=== PATIENT | female | born 1990 | race Two or more races ===

== ENCOUNTER 2016-04-26 21:02 | Emergency (ER) | payer MEDICAID ==
[~2016-04-26] VITALS: Ht 165.1 cm; Wt 176.0 kg
[~2016-04-26 21:02] MED LIST: OLA5T GT
[2016-04-26] MEDS ORDERED: LORazepam 2MG/ML-1ML VIAL IV ONE (22:00)
[2016-04-26] MEDS ORDERED: diphenhdrAMINE HCL 50 MG/1 ML VL IV ONE (22:00)
[2016-04-26] MEDS ORDERED: HALOPERIDOL LACTATE 5 MG/ML INJ VIAL IM ONE (22:00)
[2016-04-26 22:04] LABS: Basophils # (auto) 0.1 uL; Basophils % (auto) 1.6 % (0.0-2.0); Eosinophils # (auto) 0.6 uL; Eosinophils % (auto) 7.4 % (0.0-7.0); Hematocrit 38.7 % (36.0-46.0); Hemoglobin 13.1 g/dL (12.2-16.2); Lymphocytes % (auto) 23.6 % (10.0-50.0); Mean Corpuscular Hemoglobin 28.4 pg (28.0-32.0); Mean Corpuscular Hgb Conc. 33.8 g/dL (32.0-36.0); Mean Platelet Volume 7.9 fL (7.4-10.4); Monocytes # (auto) 0.5 uL; Monocytes % (auto) 5.8 % (0.0-12.0); Neutrophils # (auto) 5.3 uL; Neutrophils % (auto) 61.6 % (37.0-80.0); Platelet Count (auto) 414 10^3/uL (140-450); Red Cell Distribution Width 15.5 % (11.6-16.0); White Blood Cell 8.6 10^3/uL (4.4-10.8)
[2016-04-26 22:36] LABS: Albumin 3.7 g/dL (3.4-5.0); Anion Gap 9 (5-15); Aspartate Aminotransferase 22 U/L (15-37); BUN/Creatinine Ratio 11.8; Blood Urea Nitrogen 9 mg/dL (7-18); Calcium 8.6 mg/dL (8.5-10.1); Carbon Dioxide 24 mmol/L (21-32); Chloride 106 mmol/L (98-107); GFR African American 119 mL/min; GFR Non-African American 99 mL/min; Glucose 114 mg/dL (74-106); Potassium 3.9 mmol/L (3.5-5.1); Sodium 139 mmol/L (136-145)
[2016-04-26 22:39] LABS: Alkaline Phosphatase 144 U/L (45-117); Bilirubin, Total 0.1 mg/dL (0.2-1.0); Total Protein 7.8 g/dL (6.4-8.2)
[2016-04-26 22:41] LABS: Salicylate 3.9 mg/dL (2.8-20.0)
[2016-04-26 22:46] LABS: Acetaminophen < 2.0 ug/mL (10-30)
[2016-04-27 02:00] VITALS: BP 102/55
== END 2016-04-27 02:50 | disposition home or self-care (01) ==
LOC: EDBD 21:02 → ER 21:11
DX: F41.9 Anxiety disorder, unspecified (principal); F17.210 Nicotine dependence, cigarettes, uncomplicated; F19.10 Other psychoactive substance abuse, uncomplicated; T14.91 Suicide attempt; J45.909 Unspecified asthma, uncomplicated; F32.9 Major depressive disorder, single episode, unspecified; F20.9 Schizophrenia, unspecified
CPT/HCPCS: 36415; 80053; 80320; 80329; 85025; 96372; 96374; 96375; 99284; J1200; J1630; J2060

== ENCOUNTER 2016-04-27 11:26 | Emergency (ER) | payer MEDICAID ==
[~2016-04-27] VITALS: Ht 170.2 cm; Wt 113.4 kg
[2016-04-27 12:00] VITALS: BP 130/78
== END 2016-04-27 15:04 | disposition home or self-care (01) ==
LOC: ER 11:26
DX: F41.9 Anxiety disorder, unspecified (principal); J45.909 Unspecified asthma, uncomplicated; F32.9 Major depressive disorder, single episode, unspecified; F17.210 Nicotine dependence, cigarettes, uncomplicated; F20.9 Schizophrenia, unspecified
CPT/HCPCS: 93005

== ENCOUNTER 2016-05-09 11:05 | Emergency (ER) | payer MEDICAID ==
[~2016-05-09] VITALS: Ht 165.1 cm; Wt 54.4 kg
[2016-05-09 11:41] LABS: Basophils # (auto) 0 uL; Basophils % (auto) 0.4 % (0.0-2.0); Eosinophils # (auto) 0.4 uL; Eosinophils % (auto) 4.6 % (0.0-7.0); Hematocrit 38.6 % (36.0-46.0); Hemoglobin 12.8 g/dL (12.2-16.2); Lymphocytes # (auto) 1.9 uL; Lymphocytes % (auto) 22.8 % (10.0-50.0); Mean Corpuscular Hgb Conc. 33.1 g/dL (32.0-36.0); Mean Corpuscular Volume 84.4 fL (80.0-100.0); Mean Platelet Volume 7.6 fL (7.4-10.4); Monocytes # (auto) 0.6 uL; Monocytes % (auto) 6.8 % (0.0-12.0); Neutrophils # (auto) 5.4 uL; Neutrophils % (auto) 65.4 % (37.0-80.0); Platelet Count (auto) 359 10^3/uL (140-450); Red Cell Distribution Width 15.7 % (11.6-16.0); White Blood Cell 8.2 10^3/uL (4.4-10.8)
[2016-05-09 12:15] LABS: Albumin 3.6 g/dL (3.4-5.0); Calcium 8.4 mg/dL (8.5-10.1); Potassium 4.1 mmol/L (3.5-5.1)
[2016-05-09 12:17] LABS: Acetaminophen < 2.0 ug/mL (10-30); Salicylate 3.9 mg/dL (2.8-20.0)
[2016-05-09 12:20] LABS: BUN/Creatinine Ratio 15.8; Bilirubin, Total 0.1 mg/dL (0.2-1.0); Total Protein 7.5 g/dL (6.4-8.2)
[2016-05-09 13:26] LABS: Urine Bilirubin Negative (Negative); Urine Blood Negative /uL (Negative); Urine Color Yellow (Yellow); Urine Glucose Normal (Normal); Urine Ketone Negative (Negative); Urine Nitrite Negative (Negative); Urine RBC <1 /hpf (0 - 4); Urine Squamous Epithelial Cell FEW /hpf (<5); Urine Urobilinogen Normal (Negative)
[2016-05-09 17:54] VITALS: BP 162/90
[2016-05-09] MEDS ORDERED: LORazepam 2MG/ML-1ML VIAL IM ONE (18:15)
[2016-05-09 18:53] LABS: Amylase 48 U/L (25-115)
== END 2016-05-09 19:02 | disposition home or self-care (01) ==
LOC: EDBD 11:05 → ER 11:05
DX: F41.9 Anxiety disorder, unspecified (principal); F32.9 Major depressive disorder, single episode, unspecified; J45.909 Unspecified asthma, uncomplicated; F20.9 Schizophrenia, unspecified; F17.210 Nicotine dependence, cigarettes, uncomplicated; F19.10 Other psychoactive substance abuse, uncomplicated; R10.9 Unspecified abdominal pain
CPT/HCPCS: 36415; 80053; 80329; 81001; 81025; 82150; 83690; 84702; 85025; 96372; 99284; G0434; J2060

== ENCOUNTER 2020-07-19 18:31 | Inpatient (IN) | payer MEDICAID ==
[~2020-07-19] VITALS: Ht 165.1 cm; Wt 126.8 kg
[2020-07-19] MEDS ORDERED: PANTOPRAZOLE 40 MG/10 ML VIAL INJ IV STA (18:55)
[2020-07-19] MEDS ORDERED: SODIUM CHLORIDE 0.9% 1,000 ML IVB ONE (19:00)
[2020-07-19] MEDS ORDERED: MORPHINE SULFATE 4 MG/ML SYR/VIAL IV ONE (19:00)
[2020-07-19] MEDS ORDERED: ONDANSETRON HCL 4 MG/2 ML VIAL IV ONE (19:00)
[2020-07-19 19:37] LABS: Basophils # (auto) 0.1 10 ^3/uL (0-0.2); Basophils % (auto) 0.4 % (0.0-2.0); Eosinophils # (auto) 0.1 10 ^3/uL (0-0.8); Eosinophils % (auto) 0.8 % (0.0-7.0); Hemoglobin 13.3 g/dL (12.2-16.2); Lymphocytes # (auto) 1.5 10 ^3/uL (0.4-5.4); Lymphocytes % (auto) 11.3 % (10.0-50.0); Mean Corpuscular Volume 85.4 fL (80.0-100.0); Monocytes # (auto) 0.6 10 ^3/uL (0-1.3); Monocytes % (auto) 4.2 % (0.0-12.0); Neutrophils # (auto) 11.2 10 ^3/uL (1.6-8.6); Neutrophils % (auto) 83.3 % (37.0-80.0); Nucleated Red Blood Cells % 0.1 %; Platelet Count (auto) 370 10^3/uL (140-450); Red Blood Cells 4.57 10^6/uL (4.0-5.20); Red Cell Distribution Width 14.7 % (11.8-14.3); White Blood Cell 13.4 10^3/uL (4.4-10.8)
[2020-07-19 19:48] LABS: Albumin 3.8 g/dL (3.4-5.0); BUN/Creatinine Ratio 15.1; Calcium 8.9 mg/dL (8.5-10.1); Potassium 4.1 mmol/L (3.5-5.1)
[2020-07-19 19:51] LABS: Bilirubin, Total 0.7 mg/dL (0.2-1.0); Total Protein 7.9 g/dL (6.4-8.2)
[2020-07-19] MEDS ORDERED: SODIUM CHLORIDE 0.9% 1,000 ML IV SCH (22:45)
[2020-07-19] MEDS ORDERED: MORPHINE SULF INJ 2 MG/ML SYRINGE 1ML IV PRN (22:45)
[2020-07-19] MEDS ORDERED: TEMAZEPAM 15 MG CAP PO PRN (22:45)
[2020-07-19] MEDS ORDERED: NITROGLYCERIN 0.4 MG SL TAB SL PRN (22:45)
[2020-07-19] MEDS ORDERED: ACETAMINOPHEN 325 MG TAB PO PRN (22:45)
[2020-07-20] MEDS: MORPHINE SULFATE 4 MG/ML SYR/VIAL IV PRN ×4 (01:25→23:27)
[2020-07-20 05:00] VITALS: BP 98/59
[2020-07-20 05:35] LABS: Basophils # (auto) 0 10 ^3/uL (0-0.2); Basophils % (auto) 0.4 % (0.0-2.0); Eosinophils # (auto) 0.1 10 ^3/uL (0-0.8); Eosinophils % (auto) 1.4 % (0.0-7.0); Hematocrit 36.6 % (36.0-46.0); Hemoglobin 12.3 g/dL (12.2-16.2); Lymphocytes # (auto) 2.6 10 ^3/uL (0.4-5.4); Lymphocytes % (auto) 29.2 % (10.0-50.0); Mean Corpuscular Hemoglobin 28.9 pg (28.0-32.0); Mean Corpuscular Hgb Conc. 33.5 g/dL (32.0-36.0); Mean Corpuscular Volume 86.3 fL (80.0-100.0); Monocytes # (auto) 0.5 10 ^3/uL (0-1.3); Monocytes % (auto) 5.7 % (0.0-12.0); Neutrophils # (auto) 5.6 10 ^3/uL (1.6-8.6); Neutrophils % (auto) 63.3 % (37.0-80.0); Platelet Count (auto) 340 10^3/uL (140-450); Red Blood Cells 4.24 10^6/uL (4.0-5.20); Red Cell Distribution Width 14.9 % (11.8-14.3); White Blood Cell 8.9 10^3/uL (4.4-10.8)
[2020-07-20 05:49] LABS: Urine Bacteria MANY /hpf (None Seen); Urine Blood Negative /uL (Negative); Urine Hyaline Cast FEW /lpf (0 - 2); Urine Mucus MODERATE (None Seen); Urine WBC 24 /hpf (0 - 5)
[2020-07-20 06:08] LABS: Albumin 3.3 g/dL (3.4-5.0); BUN/Creatinine Ratio 17.2; Bilirubin, Total 0.4 mg/dL (0.2-1.0); Calcium 8.6 mg/dL (8.5-10.1); Total Protein 6.9 g/dL (6.4-8.2)
[2020-07-20] MEDS ORDERED: LORazepam 2MG/ML-1ML VIAL IV PRN (08:15)
[2020-07-20 08:30] VITALS: BP 89/58
[2020-07-20] MEDS: cefTRIAXone 1GM/50ML D5W 50 ML IV SCH (09:40)
[2020-07-20] MEDS: PANTOPRAZOLE 40 MG/10 ML VIAL INJ IV SCH (09:40)
[2020-07-20] MEDS ORDERED: ENOXAPARIN SOD 40 MG/0.4 ML SYRINGE SC SCH (10:00)
[2020-07-20 10:23] VITALS: BP 93/40
[2020-07-20 12:31] VITALS: BP 92/57
[2020-07-20] MEDS: ONDANSETRON HCL 4 MG/2 ML VIAL IV PRN ×2 (13:05→18:31)
[2020-07-20] MEDS: SODIUM CHLORIDE 0.9% 1,000 ML IV SCH ×2 (13:44→22:00)
[2020-07-20] MEDS: metroNIDAZOLE 500MG/100ML 100 ML IV SCH ×2 (13:44→22:00)
[2020-07-20 14:08] LABS: INR 1.02 (0.9-1.15); Partial Thromboplastin Time 30.5 sec (23.0-31.2)
[2020-07-20 16:30] VITALS: BP 95/62
[2020-07-20] MEDS: HYDROcodone-ACET 5/325MG TAB PO PRN (21:58)
[2020-07-20 22:16] VITALS: BP 97/57
[2020-07-21 04:59] VITALS: BP 111/58
[2020-07-21] MEDS: MORPHINE SULFATE 4 MG/ML SYR/VIAL IV PRN ×4 (05:03→21:38)
[2020-07-21 05:54] LABS: Basophils # (auto) 0.1 10 ^3/uL (0-0.2); Eosinophils # (auto) 0.2 10 ^3/uL (0-0.8); Eosinophils % (auto) 2.2 % (0.0-7.0); Hemoglobin 11.5 g/dL (12.2-16.2); Lymphocytes # (auto) 2.9 10 ^3/uL (0.4-5.4); Lymphocytes % (auto) 39.1 % (10.0-50.0); Mean Corpuscular Hemoglobin 29.8 pg (28.0-32.0); Mean Corpuscular Hgb Conc. 34.9 g/dL (32.0-36.0); Mean Corpuscular Volume 85.6 fL (80.0-100.0); Monocytes # (auto) 0.4 10 ^3/uL (0-1.3); Monocytes % (auto) 5.6 % (0.0-12.0); Neutrophils # (auto) 3.8 10 ^3/uL (1.6-8.6); Neutrophils % (auto) 52.1 % (37.0-80.0); Platelet Count (auto) 316 10^3/uL (140-450); Red Blood Cells 3.85 10^6/uL (4.0-5.20); Red Cell Distribution Width 14.7 % (11.8-14.3); White Blood Cell 7.4 10^3/uL (4.4-10.8)
[2020-07-21 06:13] LABS: Potassium 4.2 mmol/L (3.5-5.1)
[2020-07-21 06:20] LABS: Albumin 3.2 g/dL (3.4-5.0); BUN/Creatinine Ratio 9.2; Bilirubin, Total 0.4 mg/dL (0.2-1.0); Calcium 8.3 mg/dL (8.5-10.1); Total Protein 6.8 g/dL (6.4-8.2)
[2020-07-21] MEDS: metroNIDAZOLE 500MG/100ML 100 ML IV SCH ×3 (06:24→21:38)
[2020-07-21 08:39] VITALS: BP 106/71
[2020-07-21] MEDS: cefTRIAXone 1GM/50ML D5W 50 ML IV SCH ×3 (09:00→09:40)
[2020-07-21] MEDS ORDERED: fentaNYL CITRATE 100 MCG/2 ML VL ONE (09:31)
[2020-07-21] MEDS ORDERED: MIDAZOLAM HCL 1MG/1ML-2 ML VIAL ONE (09:31)
[2020-07-21] MEDS ORDERED: PROPOFOL 10 MG/ML 20 ML IV ONE (09:32)
[2020-07-21] MEDS ORDERED: DexAMETHasone SOD PHOS 10MG/1ML VIAL INJ ONE (09:32)
[2020-07-21] MEDS ORDERED: ONDANSETRON HCL 4 MG/2 ML VIAL ONE (09:32)
[2020-07-21] MEDS ORDERED: LIDOCAINE 2% (LOCAL ANESTH.) PF 5ml SDV ONE (09:32)
[2020-07-21] MEDS ORDERED: ROCURONIUM 10MG/ML 10ML VIAL IV ONE (09:33)
[2020-07-21] MEDS ORDERED: LIDOCAINE W/ EPINEPHRINE 1% 20ML VIAL ONE (10:04)
[2020-07-21] MEDS ORDERED: BUPIVACAINE 0.25% INJ 50ML VIAL ONE (10:04)
[2020-07-21] MEDS ORDERED: KETOROLAC TROMETH 60MG/2ML VIAL ONE (10:27)
[2020-07-21] MEDS ORDERED: NEOSTIGMINE 1 MG/ML INJ (10mg/10ML VIAL) ONE (10:28)
[2020-07-21] MEDS ORDERED: GLYCOPYRROLATE 0.2 MG/ML 1ML VIAL ONE (10:28)
[2020-07-21] MEDS ORDERED: HYDROmorphone HCL 2 MG/ML VL ONE (11:00)
[2020-07-21] MEDS ORDERED: HYDROmorphone HCL 2 MG/ML VL IV PRN (11:00)
[2020-07-21] MEDS: HYDROmorphone HCL 2 MG/ML VL IV PRN ×2 (11:00→11:20)
[2020-07-21] MEDS ORDERED: METOCLOPRAMIDE HCL 5MG/ml INJ 2ml VIAL IV PRN (11:00)
[2020-07-21] MEDS ORDERED: LABETALOL HCL 5 MG/ML 4ML SYRINGE IV PRN (11:00)
[2020-07-21 12:00] VITALS: BP 112/63
[2020-07-21] MEDS: PANTOPRAZOLE 40 MG/10 ML VIAL INJ IV SCH (13:20)
[2020-07-21] MEDS: SODIUM CHLORIDE 0.9% 1,000 ML IV SCH (13:21)
[2020-07-21] MEDS: DOCUSATE SOD 100 MG CAP PO PRN (15:10)
[2020-07-21] MEDS: HYDROcodone-ACET 5/325MG TAB PO PRN ×2 (15:11→19:29)
[2020-07-21] MEDS: ONDANSETRON HCL 4 MG/2 ML VIAL IV PRN (15:12)
[2020-07-21 16:17] VITALS: BP 101/56
[2020-07-21 17:53] VITALS: BP 102/70
[2020-07-21 22:10] VITALS: BP 105/58
[2020-07-22] MEDS: HYDROcodone-ACET 5/325MG TAB PO PRN ×3 (00:50→17:16)
[2020-07-22] MEDS: SODIUM CHLORIDE 0.9% 1,000 ML IV SCH ×2 (03:14→14:30)
[2020-07-22] MEDS: MORPHINE SULFATE 4 MG/ML SYR/VIAL IV PRN ×5 (04:35→23:42)
[2020-07-22 05:02] VITALS: BP 118/76
[2020-07-22 05:03] LABS: Basophils # (auto) 0 10 ^3/uL (0-0.2); Basophils % (auto) 0.2 % (0.0-2.0); Eosinophils # (auto) 0 10 ^3/uL (0-0.8); Hematocrit 34.9 % (36.0-46.0); Hemoglobin 11.6 g/dL (12.2-16.2); Lymphocytes # (auto) 1.2 10 ^3/uL (0.4-5.4); Mean Corpuscular Hemoglobin 28.4 pg (28.0-32.0); Mean Corpuscular Hgb Conc. 33.1 g/dL (32.0-36.0); Mean Corpuscular Volume 85.5 fL (80.0-100.0); Monocytes # (auto) 0.6 10 ^3/uL (0-1.3); Monocytes % (auto) 5.8 % (0.0-12.0); Neutrophils # (auto) 8.2 10 ^3/uL (1.6-8.6); Platelet Count (auto) 335 10^3/uL (140-450); Red Blood Cells 4.09 10^6/uL (4.0-5.20); Red Cell Distribution Width 14.6 % (11.8-14.3)
[2020-07-22 05:13] LABS: Albumin 3.1 g/dL (3.4-5.0); BUN/Creatinine Ratio 10.2; Calcium 8.3 mg/dL (8.5-10.1); Magnesium 1.9 mg/dL (1.6-2.6); Potassium 3.8 mmol/L (3.5-5.1)
[2020-07-22 05:16] LABS: Bilirubin, Total 0.9 mg/dL (0.2-1.0); Total Protein 6.7 g/dL (6.4-8.2)
[2020-07-22] MEDS: metroNIDAZOLE 500MG/100ML 100 ML IV SCH ×3 (06:14→21:31)
[2020-07-22] MEDS: cefTRIAXone 1GM/50ML D5W 50 ML IV SCH (09:05)
[2020-07-22] MEDS: PANTOPRAZOLE 40 MG/10 ML VIAL INJ IV SCH (09:05)
[2020-07-22] MEDS: DOCUSATE SOD 100 MG CAP PO PRN (09:10)
[2020-07-22 09:15] VITALS: BP 110/69
[2020-07-22] MEDS ORDERED: POTASSIUM CHL 20 Meq TABLET PO ONE (12:15)
[2020-07-22] MEDS ORDERED: MAGNESIUM SULFATE 1GM/100ML 100 ML IV ONE (12:15)
[2020-07-22 12:48] VITALS: BP 112/67
[2020-07-22 16:54] VITALS: BP 119/61
[2020-07-22 22:00] VITALS: BP 88/55
[2020-07-22] MEDS: ONDANSETRON HCL 4 MG/2 ML VIAL IV PRN (23:42)
[2020-07-23 00:30] VITALS: BP 98/55
[2020-07-23] MEDS: SODIUM CHLORIDE 0.9% 1,000 ML IV SCH (04:47)
[2020-07-23 05:00] VITALS: BP 106/70
[2020-07-23] MEDS: metroNIDAZOLE 500MG/100ML 100 ML IV SCH ×2 (05:11→13:35)
[2020-07-23] MEDS: HYDROcodone-ACET 5/325MG TAB PO PRN (05:11)
[2020-07-23 08:00] LABS: Hematocrit 32.9 % (36.0-46.0); Hemoglobin 10.9 g/dL (12.2-16.2)
[2020-07-23 08:18] LABS: Magnesium 1.9 mg/dL (1.6-2.6); Potassium 3.9 mmol/L (3.5-5.1)
[2020-07-23 08:21] LABS: Bilirubin, Direct 0.1 mg/dL (0-0.2); Bilirubin, Total 0.3 mg/dL (0.2-1.0); Total Protein 6.5 g/dL (6.4-8.2)
[2020-07-23 09:00] VITALS: BP 128/73
[2020-07-23] MEDS: PANTOPRAZOLE 40 MG/10 ML VIAL INJ IV SCH (09:20)
[2020-07-23] MEDS: cefTRIAXone 1GM/50ML D5W 50 ML IV SCH (09:21)
[2020-07-23 13:00] VITALS: BP 107/63
== END 2020-07-23 17:35 | disposition home or self-care (01) | DRG 263 ==
LOC: EDBD 18:31 → ER 18:31 → TELE 22:41 → TELE-CENTR 07-20 00:31 → CENTRAL 07-20 12:13
PROVIDERS: ADMIT Nurse Practitioner Family; ATTEND Internal Medicine
PROC: 0FT44ZZ Resection of Gallbladder, Percutaneous Endoscopic Approach (ICD-10-PCS; principal; 2020-07-21 09:42)
DX: K80.12 Calculus of gallbladder with acute and chronic cholecystitis without obstruction (principal); R65.10 Systemic inflammatory response syndrome (SIRS) of non-infectious origin without acute organ dysfunction; E66.01 Morbid (severe) obesity due to excess calories; Z68.42 Body mass index [BMI] 45.0-49.9, adult; F20.9 Schizophrenia, unspecified; R79.89 Other specified abnormal findings of blood chemistry; F17.210 Nicotine dependence, cigarettes, uncomplicated; F32.9 Major depressive disorder, single episode, unspecified; F41.9 Anxiety disorder, unspecified; Z20.822 Contact with and (suspected) exposure to COVID-19; Z83.3 Family history of diabetes mellitus; Z80.1 Family history of malignant neoplasm of trachea, bronchus and lung
CPT/HCPCS: 36415; 76705; 80053; 80076; 81001; 83036; 83690; 83735; 84132; 84702; 85014; 85018; 85025; 85610; 85730; 87426; 96361; 96374; 96375; C9113; G0378; J0696; J1100; J1885; J2001; J2250; J2405; J2704; J3490

== ENCOUNTER 2021-10-10 19:57 | Emergency (ER) | payer MEDICAID ==
[2021-10-11] MEDS ORDERED: SULF400T11 PO (03:02)
[2021-10-11] MEDS ORDERED: IBUP800T26 PO (03:02)
== END 2021-10-10 20:26 | disposition left against medical advice (07) ==
LOC: ER 19:57
DX: M79.672 Pain in left foot (principal); Z53.21 Procedure and treatment not carried out due to patient leaving prior to being seen by health care provider

== ENCOUNTER 2021-10-11 00:37 | Emergency (ER) | payer MEDICAID ==
[~2021-10-11] VITALS: Ht 165.1 cm; Wt 85.0 kg
[2021-10-11 00:37] VITALS: BP 133/84
[2021-10-11] MEDS ORDERED: SULF400T11 PO (03:02)
[2021-10-11] MEDS ORDERED: IBUP800T26 PO (03:02)
== END 2021-10-11 03:09 | disposition home or self-care (01) ==
LOC: ER 00:37
DX: L03.116 Cellulitis of left lower limb (principal); L02.416 Cutaneous abscess of left lower limb; F17.210 Nicotine dependence, cigarettes, uncomplicated
CPT/HCPCS: 73630

== ENCOUNTER 2021-11-25 16:51 | Emergency (ER) | payer MEDICAID ==
[~2021-11-25] VITALS: Ht 165.1 cm; Wt 77.0 kg
[~2021-11-25 16:51] MED LIST changes: +IBUP800T26 PO; -OLA5T GT; +SULF400T11 PO
[2021-11-25] MEDS ORDERED: KETOROLAC TROMETH 60MG/2ML VIAL IM ONE (19:45)
[2021-11-25] MEDS ORDERED: IBUP800T27 PO (20:05)
[2021-11-25 20:10] VITALS: BP 129/75
== END 2021-11-25 20:23 | disposition home or self-care (01) ==
LOC: ER 16:51 → EDBD 16:51 → ER 20:16
DX: M54.41 Lumbago with sciatica, right side (principal); F17.210 Nicotine dependence, cigarettes, uncomplicated; Z90.49 Acquired absence of other specified parts of digestive tract
CPT/HCPCS: 96372; 99283; J1885

== ENCOUNTER 2022-05-27 19:47 | Emergency (ER) | payer MEDICAID ==
[~2022-05-27] VITALS: Ht 165.1 cm; Wt 99.5 kg
[~2022-05-27 19:47] MED LIST changes: +IBUP800T27 PO
[2022-05-27 19:59] VITALS: BP 116/69
[2022-05-27] MEDS ORDERED: methylPREDNISolone SOD SUCC 125 MG/2 ML VL IM ONE (22:45)
[2022-05-27] MEDS ORDERED: cefTRIAXone SOD 1,000 MG VL IM ONE (22:45)
[2022-05-27] MEDS ORDERED: CLIN1GEL9 TOP (22:49)
[2022-05-27] MEDS ORDERED: AMOX-277 PO (22:49)
[2022-05-27] MEDS ORDERED: ACET-1158 PO (22:49)
== END 2022-05-27 23:58 | disposition home or self-care (01) ==
LOC: ER 19:47
DX: J18.9 Pneumonia, unspecified organism (principal); H92.02 Otalgia, left ear; F17.210 Nicotine dependence, cigarettes, uncomplicated; L73.2 Hidradenitis suppurativa; Z79.899 Other long term (current) drug therapy; Z88.6 Allergy status to analgesic agent; Z88.2 Allergy status to sulfonamides; Z90.49 Acquired absence of other specified parts of digestive tract
CPT/HCPCS: 96372; 99283; J0696

== ENCOUNTER 2022-07-17 14:28 | Emergency (ER) | payer MEDICAID ==
[~2022-07-17] VITALS: Ht 165.1 cm; Wt 99.9 kg
[2022-07-17 14:28] VITALS: BP 113/93
[~2022-07-17 14:28] MED LIST changes: +ACET-1158 PO; +AMOX-277 PO; +CLIN1GEL9 TOP
== END 2022-07-17 15:04 ==
LOC: ER 14:28
DX: F15.10 Other stimulant abuse, uncomplicated (principal); F17.210 Nicotine dependence, cigarettes, uncomplicated; Z90.49 Acquired absence of other specified parts of digestive tract; Z88.1 Allergy status to other antibiotic agents; Z88.6 Allergy status to analgesic agent

== ENCOUNTER 2022-08-07 04:50 | Emergency (ER) | payer MEDICAID ==
[~2022-08-07] VITALS: Ht 165.1 cm; Wt 90.9 kg
[~2022-08-07 04:50] MED LIST changes: -ACET-1158 PO; +ACET500T58 PO; -AMOX-277 PO; +AMOX875T4 PO; +IBUP-1455 PO; +IBUP-1456 PO; -IBUP800T26 PO; -IBUP800T27 PO
[2022-08-07] MEDS ORDERED: LORazepam 2MG/ML-1ML VIAL IV ONE (05:00)
[2022-08-07] MEDS ORDERED: HALOPERIDOL LACTATE 5 MG/ML INJ VIAL IM ONE (05:00)
[2022-08-07] MEDS ORDERED: diphenhdrAMINE HCL 50 MG/1 ML VL IV ONE (05:00)
[2022-08-07 05:59] LABS: Basophils # (auto) 0.1 10 ^3/uL (0-0.2); Basophils % (auto) 0.7 % (0.0-2.0); Eosinophils # (auto) 0.1 10 ^3/uL (0-0.8); Hematocrit 38.5 % (36.0-46.0); Hemoglobin 13.1 g/dL (12.2-16.2); Lymphocytes # (auto) 2.9 10 ^3/uL (0.4-5.4); Lymphocytes % (auto) 34.3 % (10.0-50.0); Mean Corpuscular Hemoglobin 29.7 pg (28.0-32.0); Mean Corpuscular Volume 87.5 fL (80.0-100.0); Monocytes # (auto) 0.5 10 ^3/uL (0-1.3); Neutrophils # (auto) 4.9 10 ^3/uL (1.6-8.6); Red Cell Distribution Width 14.9 % (11.8-14.3); White Blood Cell 8.5 10^3/uL (4.4-10.8)
[2022-08-07 06:06] LABS: Albumin 3.9 g/dL (3.4-5.0); Calcium 8.7 mg/dL (8.5-10.1); Potassium 3.2 mmol/L (3.5-5.1)
[2022-08-07 06:09] LABS: BUN/Creatinine Ratio 23.7 (10.0-20.0); Bilirubin, Total 0.3 mg/dL (0.2-1.0); Total Protein 7.8 g/dL (6.4-8.2)
[2022-08-07 06:18] LABS: Salicylate 2.1 mg/dL (2.8-20.0)
[2022-08-07 06:22] LABS: Acetaminophen < 2.0 ug/mL (10-30)
[2022-08-07 07:16] LABS: Urine Bacteria FEW /hpf (None Seen); Urine Blood 2+ /uL (Negative); Urine Specific Gravity 1.014 (1.001-1.035); Urine WBC 3 /hpf (0 - 5)
[2022-08-07 07:41] LABS: Alcohol, Urine < 3.0 mg/dL (0-10); Amphetamine Screen, Urine NEGATIVE (NEGATIVE); Barbiturate Scree,Urine NEGATIVE (NEGATIVE); Benzodiazephine Screen, Urine NEGATIVE (NEGATIVE); Cannabinoid Screen, Urine NEGATIVE (NEGATIVE); Cocaine Screen, Urine NEGATIVE (NEGATIVE)
[2022-08-07 07:49] LABS: Opiate Scree,Urine POSITIVE (NEGATIVE); Phencyclidine Screen, Urine NEGATIVE (NEGATIVE)
[2022-08-08] MEDS ORDERED: SERTRALINE HCL 50 MG TAB PO ONE (03:45)
[2022-08-08] MEDS ORDERED: LORazepam 2MG/ML-1ML VIAL IM ONE (04:00)
[2022-08-08 13:11] VITALS: BP 119/74
== END 2022-08-08 13:11 | disposition short-term general hospital (02) ==
LOC: EDBD 04:50 → ER 04:50
DX: R45.1 Restlessness and agitation (principal); F11.90 Opioid use, unspecified, uncomplicated; Z91.198 Patient's noncompliance with other medical treatment and regimen for other reason
CPT/HCPCS: 36415; 70450; 71045; 80053; 80307; 80329; 81001; 81025; 82550; 85025; 93005; 96372; 96374; 96375; 99285; J1200; J1630; J2060

== ENCOUNTER 2022-11-30 21:30 | Emergency (ER) | payer MEDICAID ==
[~2022-11-30] VITALS: Ht 162.6 cm; Wt 90.7 kg
[2022-11-30] MEDS ORDERED: NALOXONE HCL 1MG/ML 2ML SYRINGE ONE (21:58)
[2022-11-30 22:00] VITALS: PULSE 112; RESP 30; O2SAT 98
[2022-11-30] MEDS ORDERED: NALOXONE HCL 0.4 MG/ML VIAL IV ONE (22:00)
[2022-11-30 22:40] LABS: Basophils # (auto) 0.1 10 ^3/uL (0-0.2); Basophils % (auto) 0.4 % (0.0-2.0); Eosinophils # (auto) 0 10 ^3/uL (0-0.8); Eosinophils % (auto) 0.2 % (0.0-7.0); Hematocrit 43.9 % (36.0-46.0); Hemoglobin 14.2 g/dL (12.2-16.2); Lymphocytes # (auto) 1.4 10 ^3/uL (0.4-5.4); Mean Corpuscular Hemoglobin 28.4 pg (28.0-32.0); Mean Corpuscular Hgb Conc. 32.4 g/dL (32.0-36.0); Mean Corpuscular Volume 87.7 fL (80.0-100.0); Monocytes # (auto) 0.5 10 ^3/uL (0-1.3); Monocytes % (auto) 4.2 % (0.0-12.0); Neutrophils # (auto) 10.9 10 ^3/uL (1.6-8.6); Neutrophils % (auto) 84.2 % (37.0-80.0); Red Blood Cells 5.01 10^6/uL (4.0-5.20); Red Cell Distribution Width 15.7 % (11.8-14.3); White Blood Cell 12.9 10^3/uL (4.4-10.8)
[2022-11-30] MEDS: NALOXONE HCL 1MG/ML 2ML SYRINGE IV ONE (22:45)
[2022-11-30 23:10] LABS: Acetaminophen < 2.0 UG/ML (10.0-20.0); Alanine Aminotransferase 24 U/L (7-40); Albumin 4.8 g/dL (3.2-4.8); Alkaline Phosphatase 152 U/L (46-116); Anion Gap 6 (5-15); Aspartate Aminotransferase 21 U/L (13-40); BUN/Creatinine Ratio 12.5 (10.0-20.0); Blood Alcohol < 3.0 mg/dL (<10); Blood Urea Nitrogen 13 mg/dL (9-23); Calcium 9.4 mg/dL (8.7-10.4); Carbon Dioxide 27 mmol/L (20-30); Chloride 106 mmol/L (98-107); Glucose 83 mg/dL (74-106); Magnesium 2.2 mg/dL (1.6-2.6); Potassium 4.4 mmol/L (3.5-5.1); Sodium 139 mmol/L (136-145)
[2022-11-30 23:11] LABS: Bilirubin, Total 0.2 mg/dL (0.2-1.0)
[2022-11-30 23:16] LABS: Salicylate < 3.0 mg/dL (2.8-20.0)
[2022-12-01] MEDS ORDERED: ONDANSETRON HCL 4 MG/2 ML VIAL IV ONE (00:30)
[2022-12-01] MEDS ORDERED: SODIUM CHLORIDE 0.9% 1,000 ML IV ONE ×3 (00:30→09:45)
[2022-12-01] MEDS: NALOXONE HCL 1MG/ML 2ML SYRINGE IV ONE (01:17)
[2022-12-01 07:44] VITALS: PULSE 85; RESP 19; O2SAT 98
[2022-12-01 08:00] VITALS: TEMP 98.4
[2022-12-01 08:06] LABS: Amphetamine Screen, Urine Pos (NEGATIVE)
[2022-12-01 08:07] LABS: Barbiturate Scree,Urine Neg (NEGATIVE); Benzodiazephine Screen, Urine Neg (NEGATIVE); Cannabinoid Screen, Urine Neg (NEGATIVE); Cocaine Screen, Urine Neg (NEGATIVE); Opiate Scree,Urine Neg (NEGATIVE); Phencyclidine Screen, Urine Neg (NEGATIVE)
[2022-12-01 08:14] LABS: Urine Bacteria FEW /hpf (None Seen); Urine Blood Negative /uL (Negative); Urine Clarity HAZY (Clear); Urine Color Yellow (Yellow); Urine Hyaline Cast FEW /lpf (0 - 2); Urine Mucus FEW (None Seen); Urine Protein, UAD TRACE (Negative); Urine Specific Gravity 1.023 (1.001-1.035); Urine Urobilinogen Normal (Negative); Urine WBC 4 /hpf (0 - 5)
[2022-12-01] MEDS ORDERED: cefTRIAXone 1GM/50ML D5W 50 ML IV ONE (09:45)
[2022-12-01 14:01] VITALS: BP 96/35; PULSE 83; RESP 18; O2SAT 100
== END 2022-12-01 15:30 | disposition home or self-care (01) ==
LOC: ER 21:30 → EDBD 21:30 → ER 12-01 15:30
DX: I95.1 Orthostatic hypotension (principal); F17.210 Nicotine dependence, cigarettes, uncomplicated; F12.90 Cannabis use, unspecified, uncomplicated; Z79.899 Other long term (current) drug therapy; Z90.49 Acquired absence of other specified parts of digestive tract; Z59.00 Homelessness unspecified
CPT/HCPCS: 36415; 70450; 80053; 80307; 80320; 80329; 81001; 83735; 85025; 96361; 96365; 96375; 99285; J0696; J2310; J2405; J7030

== ENCOUNTER 2022-12-20 00:30 | Emergency (ER) | payer MEDICAID ==
[~2022-12-20] VITALS: Ht 165.1 cm; Wt 99.0 kg
[2022-12-20 00:41] VITALS: BP 109/64; PULSE 78; RESP 16; TEMP 98.4; O2SAT 98
[2022-12-20] MEDS ORDERED: CLINDAMYCIN HCL 150 MG CAP PO ONE (01:45)
[2022-12-20] MEDS ORDERED: HYDROcodone-ACET 5/325MG TAB PO ONE (01:45)
[2022-12-20] MEDS ORDERED: cefTRIAXone SOD 1,000 MG VL IM ONE (01:45)
[2022-12-20] MEDS ORDERED: CLIN-203 PO (01:48)
[2022-12-20] MEDS ORDERED: MUPI2OIN2 EX (01:48)
[2022-12-20] MEDS ORDERED: IBUP-1455 PO (01:48)
[2022-12-20] MEDS ORDERED: BACDST PO (01:48)
== END 2022-12-20 06:11 | disposition home or self-care (01) ==
LOC: ER 00:30
DX: L02.412 Cutaneous abscess of left axilla (principal); F17.210 Nicotine dependence, cigarettes, uncomplicated; F15.90 Other stimulant use, unspecified, uncomplicated; Z90.49 Acquired absence of other specified parts of digestive tract; Z79.1 Long term (current) use of non-steroidal anti-inflammatories (NSAID); Z79.899 Other long term (current) drug therapy
CPT/HCPCS: 96372; 99283; J0696